=== PATIENT | female | born 1970 | race Two or more races ===

== ENCOUNTER 2022-11-08 09:39 | Inpatient (IN) | payer OTHER ==
[~2022-11-08] VITALS: Ht 160 cm; Wt 72.0 kg
[2022-11-08] MEDS ORDERED: MORPHINE SULFATE 4 MG/ML SYR/VIAL IV ONE (12:00)
[2022-11-08] MEDS ORDERED: ONDANSETRON HCL 4 MG/2 ML VIAL IV ONE (12:00)
[2022-11-08] MEDS ORDERED: LORazepam 2MG/ML-1ML VIAL IV ONE ×2 (12:00→13:30)
[2022-11-08] MEDS ORDERED: KETAMINE 50mg/ML 10ml Vial (500mg/10ml) IV ONE ×2 (12:00→13:40)
[2022-11-08] MEDS ORDERED: KETOROLAC TROMETH 30 MG/ML 1ML VIAL IV ONE (12:00)
[2022-11-08] MEDS ORDERED: LORazepam 2MG/ML-1ML VIAL ONE (13:27)
[2022-11-08] MEDS ORDERED: MORPHINE SULFATE INJ 2 MG/ml SYRG ONE (13:35)
[2022-11-08] MEDS ORDERED: MORPHINE SULFATE INJ 2 MG/ml SYRG IV ONE (13:35)
[2022-11-08] MEDS ORDERED: ACETAMINOPHEN 500 MG TAB PO PRN (17:00)
[2022-11-08] MEDS ORDERED: hydrALAZINE HCL 20 MG/ML VL IV PRN (17:00)
[2022-11-08] MEDS ORDERED: ONDANSETRON HCL 4 MG/2 ML VIAL IV PRN (17:00)
[2022-11-08] MEDS ORDERED: DOCUSATE SOD 100 MG CAP PO PRN (17:00)
[2022-11-08 17:38] LABS: Basophils # (auto) 0 10 ^3/uL (0-0.2); Basophils % (auto) 0.2 % (0.0-2.0); Eosinophils # (auto) 0 10 ^3/uL (0-0.8); Eosinophils % (auto) 0.1 % (0.0-7.0); Hematocrit 40.6 % (36.0-46.0); Hemoglobin 12.9 g/dL (12.2-16.2); Lymphocytes # (auto) 0.7 10 ^3/uL (0.4-5.4); Lymphocytes % (auto) 7.7 % (10.0-50.0); Mean Corpuscular Hemoglobin 26.8 pg (28.0-32.0); Mean Corpuscular Hgb Conc. 31.7 g/dL (32.0-36.0); Mean Corpuscular Volume 84.5 fL (80.0-100.0); Monocytes # (auto) 0.6 10 ^3/uL (0-1.3); Monocytes % (auto) 6.3 % (0.0-12.0); Neutrophils # (auto) 8.2 10 ^3/uL (1.6-8.6); Neutrophils % (auto) 85.7 % (37.0-80.0); Nucleated Red Blood Cells % 0.2 %; Red Blood Cells 4.81 10^6/uL (4.0-5.20); Red Cell Distribution Width 14.3 % (11.8-14.3); White Blood Cell 9.5 10^3/uL (4.4-10.8)
[2022-11-08 17:46] LABS: INR 0.98 (0.9-1.15)
[2022-11-08 17:51] LABS: Albumin 3.5 g/dL (3.4-5.0); BUN/Creatinine Ratio 26.9 (10.0-20.0); Calcium 9.2 mg/dL (8.5-10.1)
[2022-11-08 18:10] LABS: Bilirubin, Total 0.3 mg/dL (0.2-1.0); Total Protein 7.3 g/dL (6.4-8.2)
[2022-11-08] MEDS: HYDROcodone-ACET 5/325MG TAB PO PRN (21:00)
[2022-11-08] MEDS ORDERED: AMLO-483 PO (21:40)
[2022-11-08] MEDS ORDERED: HYDR200T36 PO (21:40)
[2022-11-08] MEDS ORDERED: FAMO40TA7 PO (21:40)
[2022-11-08] MEDS ORDERED: OMEP-411 PO (21:40)
[2022-11-08 22:00] VITALS: BP 124/79
[2022-11-09] MEDS: MORPHINE SULFATE INJ 2 MG/ml SYRG IV PRN (04:01)
[2022-11-09 05:00] VITALS: BP 135/82
[2022-11-09 05:06] LABS: Urine Bacteria NONE SEEN /hpf (None Seen); Urine Blood 1+ /uL (Negative); Urine Mucus FEW (None Seen); Urine Specific Gravity 1.035 (1.001-1.035); Urine WBC 4 /hpf (0 - 5)
[2022-11-09] MEDS ORDERED: SUCCINYLCHOLINE CHLORIDE 20 MG/ML 10ML VIAL IV ONE (06:58)
[2022-11-09] MEDS ORDERED: ROCURONIUM 10MG/ML 10ML VIAL IV ONE (06:58)
[2022-11-09] MEDS ORDERED: HYDROmorphone HCL 2 MG/ML VL/or syr IV PRN ×2 (07:00)
[2022-11-09] MEDS ORDERED: METOCLOPRAMIDE HCL 5MG/ml INJ 2ml VIAL IV PRN (07:00)
[2022-11-09] MEDS ORDERED: LIDOCAINE 2% JELLY 11ml (GLYDO) ONE (07:00)
[2022-11-09] MEDS ORDERED: MORPHINE SULFATE INJ 2 MG/ml SYRG IV PRN (07:00)
[2022-11-09] MEDS ORDERED: fentaNYL CITRATE 100 MCG/2 ML VL ONE (07:06)
[2022-11-09] MEDS ORDERED: DexAMETHasone SOD PHOS 10MG/1ML VIAL INJ ONE (07:06)
[2022-11-09] MEDS ORDERED: SODIUM CHLORIDE LOCK 10 ML ONE (07:06)
[2022-11-09] MEDS ORDERED: MIDAZOLAM HCL 2MG/2ML 2ml VIAL (1mg/ml) ONE (07:06)
[2022-11-09] MEDS ORDERED: PROPOFOL 10 MG/ML 20 ML IV ONE (07:06)
[2022-11-09] MEDS ORDERED: ONDANSETRON HCL 4 MG/2 ML VIAL ONE (07:06)
[2022-11-09] MEDS ORDERED: AMLO-489 PO (10:41)
[2022-11-09] MEDS ORDERED: hydrOXYchloroQUINE SULFATE 200 MG TAB PO ONE (10:45)
[2022-11-09] MEDS ORDERED: FAMOTIDINE 20 MG TAB PO ONE (10:45)
[2022-11-09] MEDS ORDERED: amLODIPine BESYLATE 5 MG TAB PO ONE (10:45)
[2022-11-09 13:23] VITALS: BP 130/72
[2022-11-09 16:40] VITALS: BP 118/62
[2022-11-09] MEDS: HYDROcodone-ACET 5/325MG TAB PO PRN ×2 (16:49→22:01)
[2022-11-09 20:00] VITALS: BP 115/67
[2022-11-09] MEDS: hydrOXYchloroQUINE SULFATE 200 MG TAB PO SCH (21:57)
[2022-11-09 22:00] VITALS: BP 115/67
[2022-11-10] VITALS (8 sets, daily range): BP systolic 113–148; BP diastolic 51–89
[2022-11-10] MEDS: MORPHINE SULFATE INJ 2 MG/ml SYRG IV PRN ×2 (09:53→22:39)
[2022-11-10] MEDS: PANTOPRAZOLE 40 MG TAB PO SCH (09:56)
[2022-11-10] MEDS: FAMOTIDINE 20 MG TAB PO SCH (09:57)
[2022-11-10] MEDS: amLODIPine BESYLATE 5 MG TAB PO SCH (09:57)
[2022-11-10] MEDS: hydrOXYchloroQUINE SULFATE 200 MG TAB PO SCH ×2 (09:57→22:37)
[2022-11-10] MEDS ORDERED: HYDR-4902 PO (10:44)
[2022-11-11 05:00] VITALS: BP 126/79
[2022-11-11 08:00] VITALS: BP 151/79
[2022-11-11] MEDS: amLODIPine BESYLATE 5 MG TAB PO SCH (08:52)
[2022-11-11] MEDS: PANTOPRAZOLE 40 MG TAB PO SCH (08:52)
[2022-11-11] MEDS: hydrOXYchloroQUINE SULFATE 200 MG TAB PO SCH ×2 (08:53→21:46)
[2022-11-11] MEDS: FAMOTIDINE 20 MG TAB PO SCH (08:53)
[2022-11-11 09:00] VITALS: BP 151/79
[2022-11-11] MEDS: LOPERAMIDE HCL 2 MG CAP/TAB PO PRN ×2 (12:27→21:46)
[2022-11-11 13:00] VITALS: BP 131/72
[2022-11-11] MEDS: HYDROcodone-ACET 5/325MG TAB PO PRN ×2 (16:09→22:40)
[2022-11-11 17:00] VITALS: BP 138/71
[2022-11-11 22:00] VITALS: BP 120/69
[2022-11-12] VITALS (7 sets, daily range): BP systolic 109–133; BP diastolic 57–68
[2022-11-12] MEDS: HYDROcodone-ACET 5/325MG TAB PO PRN ×2 (10:16→22:23)
[2022-11-12] MEDS: LOPERAMIDE HCL 2 MG CAP/TAB PO PRN ×2 (10:17→22:23)
[2022-11-12] MEDS: FAMOTIDINE 20 MG TAB PO SCH (10:18)
[2022-11-12] MEDS: hydrOXYchloroQUINE SULFATE 200 MG TAB PO SCH ×2 (10:19→22:22)
[2022-11-12] MEDS: PANTOPRAZOLE 40 MG TAB PO SCH (10:19)
[2022-11-12] MEDS: amLODIPine BESYLATE 5 MG TAB PO SCH (10:19)
[2022-11-13 05:00] VITALS: BP 122/63
[2022-11-13 08:00] VITALS: BP 113/65
[2022-11-13 09:41] VITALS: BP 113/65
[2022-11-13] MEDS: FAMOTIDINE 20 MG TAB PO SCH (10:09)
[2022-11-13] MEDS: PANTOPRAZOLE 40 MG TAB PO SCH (10:10)
[2022-11-13] MEDS: hydrOXYchloroQUINE SULFATE 200 MG TAB PO SCH (10:10)
[2022-11-13] MEDS: amLODIPine BESYLATE 5 MG TAB PO SCH (10:11)
[2022-11-13] MEDS: LOPERAMIDE HCL 2 MG CAP/TAB PO PRN (10:12)
[2022-11-13] MEDS: HYDROcodone-ACET 5/325MG TAB PO PRN (10:19)
[2022-11-13 13:11] VITALS: BP 130/74
== END 2022-11-13 14:15 | disposition home or self-care (01) | DRG 342 ==
LOC: ER 09:39 → OVERFLOW 16:54 → EAST 20:13
PROVIDERS: ADMIT Nurse Practitioner Acute Care; ATTEND Internal Medicine Pulmonary Disease
PROC: 0RSKXZZ Reposition Left Shoulder Joint, External Approach (ICD-10-PCS; principal; 2022-11-08)
PROC: 0PSDXZZ Reposition Left Humeral Head, External Approach (ICD-10-PCS; 2022-11-09)
DX: S43.015A Anterior dislocation of left humerus, initial encounter (principal); M35.1 Other overlap syndromes; I10 Essential (primary) hypertension; J45.909 Unspecified asthma, uncomplicated; Z20.822 Contact with and (suspected) exposure to COVID-19; W18.39XA Other fall on same level, initial encounter; Y93.89 Activity, other specified; Y92.89 Other specified places as the place of occurrence of the external cause; Y99.8 Other external cause status
CPT/HCPCS: 23650; 36415; 71045; 73020; 73030; 76000; 80053; 81001; 85025; 85610; 87426; 93005; 96374; 96375; 97110; 97116; 97163; 97530; G0378; J0330; J1100; J1885; J2250; J2405; J2704